=== PATIENT | male | born 1975 | race Caucasian/White ===

== ENCOUNTER 2020-04-11 08:53 | Emergency (ER) | payer OTHER ==
[2020-04-11] MEDS ORDERED: Bupivacaine 0.5% 10 ML SDV ONE ×2 (09:00→09:05)
[2020-04-11] MEDS ORDERED: Bupivacaine 0.5% 10 ML SDV INJECT ONE ×2 (09:20)
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
[2020-04-11] MEDS ORDERED: Iopamidol 755 Mg/ML 75 ML Bottle IVPUSH ONE (09:32)
[2020-04-11] MEDS ORDERED: Diphtheria,Pertussis(Acell),Tetanus Vaccine 0.5 ML Syringe IM ONE (09:41)
[2020-04-11] MEDS ORDERED: Sodium Chloride 0.9% 50 ML IV SCH (09:45)
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
[2020-04-11 09:54] LABS: CHLORIDE,CL 102 mmol/L (98-107); SODIUM,NA 137 mmol/L (136-145)
--- NOTE | 2020-05-28 10:57 | ER ---
ADDENDUM: This abdominal wound laceration measuring 10 cm in length, 2 cm deep and 1 cm wide. After wound was irrigated, sterile dressings were applied. Deep wound closure using 0 Vicryl pop-offs were used for the subcutaneous. Skin was closed with elvira. The patient tolerated procedure well. Light dressings were applied. /[id number]/MODL
== END 2020-04-11 11:00 | disposition home or self-care (01) ==
LOC: KA.ED 08:53
DX: S31.114A Laceration without foreign body of abdominal wall, left lower quadrant without penetration into peritoneal cavity, initial encounter (principal); Z23 Encounter for immunization; Z88.1 Allergy status to other antibiotic agents; W26.0XXA Contact with knife, initial encounter
CPT/HCPCS: 12034; 36415; 74177; 80048; 85025; 90471; 90715; 99285; 99285-25; J3490; Q9967